=== PATIENT | male | born 1970 | race Two or more races ===

== ENCOUNTER 2021-10-20 16:31 | Emergency (ER) | payer MEDICAID ==
[~2021-10-20] VITALS: Ht 177.8 cm; Wt 104.3 kg
[2021-10-20 17:40] VITALS: BP 124/86
[2021-10-20] MEDS ORDERED: AMOX-430 PO (19:29)
--- NOTE | 2021-10-20 19:51 | NUR ---
Patient discharged to home in stable condition. Written and verbal after care instructions given. Patient verbalizes understanding of instruction.
== END 2021-10-20 19:52 | disposition home or self-care (01) ==
LOC: ER 16:47
DX: L02.511 Cutaneous abscess of right hand (principal); E11.9 Type 2 diabetes mellitus without complications; I10 Essential (primary) hypertension; I25.2 Old myocardial infarction
CPT/HCPCS: 82962-TC